=== PATIENT | female | born 2000 ===

== ENCOUNTER 2019-04-30 17:10 | Outpatient (REF) | payer MEDICAID, SELFPAY ==
[2019-05-06 13:18] LABS: Chlamydia Result Negative (Negative); GC Result Negative (Negative)
== END 2019-04-30 17:30 ==
LOC: NCHCN 17:10
PROVIDERS: PCP Physician Assistant; Visit Provider Physician Assistant
DX: Z11.3 Encounter for screening for infections with a predominantly sexual mode of transmission (principal)
CPT/HCPCS: 87491; 87591

== ENCOUNTER 2019-10-16 16:12 | Outpatient (REF) | payer MEDICAID, SELFPAY ==
[2019-10-16 22:18] LABS: Abs Immature Grans 0.03 10^3/uL (0.0-0.06); Absolute Basophil Count 0.02 10^3/uL (0.0-0.2); Absolute Eosinophil Count 0.11 10^3/uL (0.0-0.7); Absolute Lymphocyte Count 3.01 10^3/uL (1.2-3.4); Absolute Monocyte Count 0.92 10^3/uL (0.1-0.8); Absolute Neutrophil Count 3.82 10^3/uL (1.2-6.7); Basophils % 0.3; Eosinophils % 1.4; HCT 40.1 % (36.0-46.0); HGB 12.8 g/dL (11.2-15.7); Immature Grans % 0.4; Lymphocytes % 38.1; MCH 29.6 pg (27.0-33.0); MCHC 31.9 % (32.0-36.0); MCV 92.6 fL (80-95); Monocytes % 11.6; Neutrophils % 48.2; Platelet Count 380 10^3/uL (130-400); RBC 4.33 10^6/uL (3.93-5.22); RDW 12.3 % (11.7-14.6); RDW-SD 42.5 fL; WBC 7.91 10^3/uL (4.4-10.8)
[2019-10-16 23:04] LABS: Iron 80 ug/dL (50-170); Total Iron Binding Capacity 451 ug/dL (250-450); Transferrin Sat 18 % (15-50)
[2019-10-16 23:41] LABS: ALT 31 U/L (14-59); AST 21 U/L (15-37); Albumin 3.6 g/dL (3.4-5.0); Alkaline Phosphatase 36 U/L (46-116); Anion Gap 10.3 mmol/L (3-11); BUN 13 mg/dL (7-18); Bilirubin, Total 0.1 mg/dL (0.2-1.0); CO2 24.7 mmol/L (21.0-32.0); CREATININE 0.68 mg/dL (0.55-1.02); Calcium 9.6 mg/dL (8.5-10.1); Chloride 104 mmol/L (98-107); Glucose 82 mg/dL (74-106); Sodium 139 mmol/L (136-145); TSH (W/Ref FT4) 0.55 uIU/mL (0.36-3.74); Total Protein 6.9 g/dL (6.4-8.2); Vitamin B12 282 pg/mL (193-986)
[2019-10-17 04:51] LABS: Vitamin D 25 Total 25.7 ng/ml (30-100)
[2019-10-18 09:41] LABS: Hepatitis C Ab w Rflx HCV PCR Negative (Negative)
[2019-10-18 10:14] LABS: HIV-1/2 Ag & Ab Screen Negative (Negative)
[2019-10-18 10:51] LABS: Syphilis Serology (RPR) Negative (Negative)
== END 2019-10-16 16:32 ==
LOC: NCHCN 16:12
PROVIDERS: PCP Physician Assistant; Visit Provider Physician Assistant
DX: R10.9 Unspecified abdominal pain (principal); F43.10 Post-traumatic stress disorder, unspecified; R51 Headache; R63.5 Abnormal weight gain
CPT/HCPCS: 80053; 82306; 86803; 87389; 82607; 83540; 83550; 84443; 85025; 86592

== ENCOUNTER 2020-02-07 18:08 | Outpatient (REF) | payer MEDICAID, SELFPAY ==
[2020-02-11 13:46] LABS: Chlamydia amplified RNA Negative (Negative); N gonorrhoeae amplified RNA Negative (Negative); Source vaginal
== END 2020-02-07 18:28 ==
LOC: NCHCN 18:08
PROVIDERS: PCP Physician Assistant; Visit Provider Physician Assistant
DX: L29.8 Other pruritus (principal); N89.8 Other specified noninflammatory disorders of vagina
CPT/HCPCS: 87491; 87591; 87480; 87510; 87660

== ENCOUNTER 2020-02-12 10:31 | Outpatient (REF) | payer MEDICAID, SELFPAY ==
[2020-02-16 17:44] LABS: SARS-CoV-2 RNA Undetected (Undetected); SARS-CoV-2 Specimen Source Nasal
== END 2020-02-12 10:51 ==
LOC: NCHCN 10:31
PROVIDERS: PCP Physician Assistant; Visit Provider Physician Assistant
DX: Z20.828 Contact with and (suspected) exposure to other viral communicable diseases (principal)
CPT/HCPCS: U0003

== ENCOUNTER 2020-06-16 14:29 | Outpatient (REF) | payer MEDICAID, SELFPAY ==
[2020-06-16 19:20] LABS: HCG Quant, Pregnancy < 1 mIU/mL (1-3)
== END 2020-06-16 14:30 | disposition home or self-care (01) ==
LOC: NCHCN 14:29
PROVIDERS: Obstetrics & Gynecology; PCP Physician Assistant; Visit Provider Physician Assistant
DX: N92.5 Other specified irregular menstruation (principal)
CPT/HCPCS: 84702